=== PATIENT | female | born 1995 | race African-American/Black ===

== ENCOUNTER 2018-03-13 20:44 | Emergency (ER) | payer SELFPAY ==
[~2018-03-13] VITALS: Ht 157.5 cm; Wt 57.0 kg
[2018-03-14 00:05] VITALS: BP 122/74
[2018-03-14] MEDS ORDERED: METHYLPREDNISOLONE SOD SUCC 125 MG/2 ML VIAL IM ONE (00:30)
[2018-03-14] MEDS ORDERED: FAMOTIDINE 20MG TABLET PO ONE (00:30)
== END 2018-03-14 01:22 | disposition home or self-care (01) ==
LOC: ER 20:44
DX: T78.40XA Allergy, unspecified, initial encounter (principal); X58.XXXA Exposure to other specified factors, initial encounter
CPT/HCPCS: 81025; 96372; 99283; J2930